=== PATIENT | female | born 1990 | race Hispanic/Latino ===

== ENCOUNTER 2017-09-01 18:11 | Emergency (ER) | payer OTHER ==
[2017-09-01 18:19] VITALS: RESP 16; O2SAT 100; BMI 21.9
[2017-09-01] MEDS ORDERED: Sodium Chloride 0.9% 1,000 ML IV STA (18:51)
--- NOTE | 2017-09-01 18:51 | ED PDOC ---
HPI: Abdomen Time Seen by Provider: 09/01/17 18:23 Chief Complaint (Nursing): Abdominal Pain Chief Complaint (Provider): vomiting History Per: Patient Additional Complaint(s): 27-year-old female with no past medical history presents to emergency department with abdominal pain and vomiting that started as of 9:00 this morning. Patient states she drank heavy alcohol last night which has now caused stomach upset. She denies fever or chills, no diarrhea. Patient is unable to keep down even sips of water. Past Medical History Reviewed: Historical Data, Nursing Documentation, Vital Signs Vital Signs: Last Vital Signs Temp 98.3 F 09/01/17 18:18 Pulse 92 H 09/01/17 18:18 Resp 16 09/01/17 18:18 BP 144/85 09/01/17 18:18 Pulse Ox 100 09/01/17 19:48 - Medical History PMH: No Chronic Diseases - Surgical History Other surgeries: right knee surgery - Family History Family History: States: No Known Family Hx - Living Arrangements Living Arrangements: With Family - Social History Current smoker - smoking cessation education provided: No Alcohol: Social Drugs: Cannabis - Allergies Allergies/Adverse Reactions: Allergies Allergy/AdvReac Type Severity Reaction Status Date / Time No Known Allergies Allergy Verified 09/01/17 18:18 Review of Systems ROS Statement: Except As Marked, All Systems Reviewed And Found Negative Constitutional: Negative for: Fever Cardiovascular: Negative for: Chest Pain Respiratory: Negative for: Cough Gastrointestinal: Positive for: Nausea, Vomiting, Abdominal Pain. Negative for : Diarrhea Genitourinary Female: Negative for: Dysuria Physical Exam - Reviewed Nursing Documentation Reviewed: Yes Vital Signs Reviewed: Yes - Physical Exam Appears: Positive for: Well, Non-toxic, No Acute Distress Skin: Negative for: Rash Eye Exam: Positive for: Normal appearance Cardiovascular/Chest: Positive for: Regular Rate, Rhythm Respiratory: Positive for: Normal Breath Sounds Gastrointestinal/Abdominal: Positive for: Soft. Negative for: Tenderness, Distended, Guarding, Rebound Extremity: Positive for: Normal ROM Neurologic/Psych: Positive for: Alert, Oriented - Laboratory Results Result Diagrams: 09/01/17 19:13 09/01/17 19:13 - ECG O2 Sat by Pulse Oximetry: 100 Pulse Ox Interpretation: Normal Medical Decision Making Medical Decision Makin27 year old with vomiting and abdominal pain s/p alcohol use last night. Plan: Urine and dip CBC CMP Lipase IVF IV reglan Disposition - Clinical Impression Clinical Impression: Vomiting - Patient ED Disposition Is Patient to be Admitted: Transfer of Care - Disposition Disposition: Transfer of Care Disposition Time: 20:00 Condition: STABLE Forms: [facility] (Congolese) Patient Signed Over To: Mikhail Pang Handoff Comments: Signed out pending diagnostic testing results, PO challenge, re-evaluation and final disposition
[2017-09-01 19:18] LABS: BASO % 0.3 % (0.0-2.0); HEMOGLOBIN 14.6 g/dL (12.0-16.0); LYMPH # 0.8 K/uL (1.0-4.3); MEAN CELL VOLUME 90.6 fl (81.0-99.0); MEAN CORPUSCULAR HEMOGLOBIN 30.8 pg (27.0-31.0); MEAN CORPUSCULAR HGB CONC 34.1 g/dL (33.0-37.0); MONO # 0.2 K/uL (0.0-0.8); MONO % 1.6 % (0.0-10.0); NEUT # 10.9 K/uL (1.8-7.0); NEUT % 91.1 % (50.0-75.0); NRBC % 0.1 % (0.0-0.0); PLATELET COUNT 231 K/uL (130-400); RBC 4.73 Mil/uL (3.80-5.20); RED CELL DISTRIBUTION WIDTH 12.4 % (11.5-14.5)
[2017-09-01 19:32] LABS: ALB/GLOB RATIO 1.3 (1.0-2.1); ALBUMIN 4.8 g/dL (3.5-5.0); ALT/SGPT 33 U/L (9-52); AST/SGOT 26 U/L (14-36); BLOOD UREA NITROGEN 16 mg/dl (7-17); CALCIUM 9.7 mg/dL (8.4-10.2); GFR AFRICAN-AMERICAN > 60; GFR NON-AFRICAN AMERICAN > 60; LIPASE 44 U/L (23-300)
[2017-09-01 20:19] LABS: LYMPHOCYTE 5 % (20-50); MONOCYTE 3 % (0-10); NEUTROPHIL 92 % (42-75); PLATELET ESTIMATE NORMAL (NORMAL); TOTAL CELLS COUNTED 100
[2017-09-01 21:50] VITALS: BP 136/80; PULSE 90; TEMP 98.4
== END 2017-09-01 21:48 | disposition home or self-care (01) ==
LOC: H.ER 18:11
DX: R11.10 Vomiting, unspecified (principal)
CPT/HCPCS: 80053; 83690; 85025; 99283; J2765; J7040